=== PATIENT | male | born 1960 | race Caucasian/White ===

== ENCOUNTER 2018-06-18 21:11 | Emergency (ER) | payer OTHER ==
[~2018-06-18] VITALS: Ht 172.7 cm; Wt 93.0 kg
[~2018-06-18 21:11] MED LIST: ADULT LOW DOSE81 MG PO; HYDROCODONE-AP1 EAC6 PO; MAXITROL EYE DRO5 ML OP; NOHOMEMEDICATIONS; ZPAK PO
[2018-06-18] MEDS ORDERED: JANUVIA25 MG (21:22)
[2018-06-18] MEDS ORDERED: METFORMIN HCL500 MG PO (21:22)
[2018-06-18] MEDS ORDERED: [UNRECOGNIZED DRUG - CODE] (21:23)
[2018-06-19 00:09] VITALS: BP 146/85
== END 2018-06-19 00:09 | disposition home or self-care (01) ==
LOC: M.ERS 21:11
DX: N48.33 Priapism, drug-induced (principal); T50.995A Adverse effect of other drugs, medicaments and biological substances, initial encounter; Y92.89 Other specified places as the place of occurrence of the external cause; E11.9 Type 2 diabetes mellitus without complications

== ENCOUNTER 2018-07-01 01:04 | Emergency (ER) | payer OTHER ==
[~2018-07-01] VITALS: Ht 175.3 cm; Wt 93.0 kg
[~2018-07-01 01:04] MED LIST changes: +JANUVIA25 MG; +METFORMIN HCL500 MG PO; +[UNRECOGNIZED DRUG - CODE]
[2018-07-01 05:10] VITALS: BP 121/85
== END 2018-07-01 05:09 | disposition home or self-care (01) ==
LOC: M.ERS 01:04
DX: N48.30 Priapism, unspecified (principal)